=== PATIENT | female | born 1995 ===

== ENCOUNTER 2018-10-14 09:18 | Outpatient (CLI) | payer OTHER ==
[~2018-10-14] VITALS: Ht 152.4 cm; Wt 72.6 kg
== END 2018-10-14 09:35 | disposition home or self-care (01) ==
LOC: OFIC 805 09:18
DX: H90.41 Sensorineural hearing loss, unilateral, right ear, with unrestricted hearing on the contralateral side (principal); J31.0 Chronic rhinitis; R42 Dizziness and giddiness